=== PATIENT | female | born 1950 | race Caucasian/White ===

== ENCOUNTER 2017-05-19 11:35 | Emergency (ER) | payer OTHER ==
[2017-05-19 12:03] VITALS: BP 133/95; PULSE 96; TEMP 99.4; BMI 24.7
--- NOTE | 2017-05-19 12:28 | PDOC ---
History of Present Illness - General Chief Complaint: Pain Stated Complaint: CHRONIC ABDOMINAL PAIN Time Seen by Provider: 05/19/17 11:52 History Source: Patient (Patient walked in along with her boyfriend complaing of abdominal recurent pain in around the navel. Her PMD sent her to a racing board marker for a periumbilical exema. Had an upper GI endoscopy wich clarified the questionable stomach mass as food in te stomach. Patient reportedely had periodic Chief Nursing Officer and Mamograms check ups as well PCP routine visits ) Exam Limitations: No Limitations - History of Present Illness Timing/Duration: unsure, changing over time, intermittent Severity: mild Modifying Factors: worse with: cold therapy, eating, immobilization, medication , movement, rest, other Associated Symptoms: reports: denies symptoms Past History - Travel Traveled outside of the country in the last 30 days: No Close contact w/someone who was outside of country & ill: No - Past Medical History Allergies/Adverse Reactions: Allergies Allergy/AdvReac Type Severity Reaction Status Date / Time iodine Allergy Verified 05/19/17 11:37 lactase [From Dairy Aid] Allergy Verified 05/19/17 11:38 shellfish derived Allergy Verified 05/19/17 11:38 doxycycline AdvReac Verified 05/19/17 11:38 Home Medications: Ambulatory Orders Alprazolam [Xanax] 1 mg PO QID 03/18/15 Gabapentin 300 mg PO DAILY 03/18/15 Lisinopril 5 mg PO DAILY 03/18/15 Theophylline Anhydrous [Theophylline] 100 mg PO BID 03/18/15 Tramadol HCl 100 mg PO BID 03/18/15 Oxycodone HCl/Acetaminophen [Percocet 5/325 -] 1 tab PO Q6H PRN #8 tablet Albuterol Sulfate [Proair Respiclick] 90 mcg IH BID 05/19/17 Montelukast Na [Singulair -] 10 mg PO HS 05/19/17 Tramadol HCl [Tramadol HCl ER] 100 mg PO BID 05/19/17 COPD: Yes HTN: Yes Hypercholesterolemia: Yes Psychiatric Problems: Yes (BIPOLAR) Thyroid Disease: Yes - Suicide/Smoking/Psychosocial Hx Smoking Status: Yes Smoking History: Former smoker Have you smoked in the past 12 months: No Number of Cigarettes Smoked Daily: 0 If you are a former smoker, when did you quit?: 9 YEARS AGO Information on smoking cessation initiated: No Hx Alcohol Use: No Drug/Substance Use Hx: No Substance Use Type: None Hx Substance Use Treatment: No Review of Systems - Review of Systems Able to Perform ROS?: Yes Is the patient limited [place] proficient: Yes Constitutional: No: Symptoms Reported, See HPI, Chills, Diaphoresis, Fever, Loss of Appetite, Malaise, Night Sweats, Weakness, Weight Stable, Unintentional Wgt. Loss, Unexplained wgt Loss, Other *Physical Exam - Vital Signs Last Vital Signs Temp Pulse Resp BP Pulse Ox 99.4 F 96 H 20 133/95 96 05/19/17 11:36 05/19/17 11:36 05/19/17 11:36 05/19/17 11:36 05/19/17 11:36 - Physical Exam General Appearance: Yes: Nourished, Appropriately Dressed, Mild Distress HEENT: positive: ERLINDA Neck: positive: Supple Respiratory/Chest: positive: Lungs Clear, Normal Breath Sounds Cardiovascular: positive: Regular Rate, Diastolic Murmur Lymphatic: negative: Adenopathy Musculoskeletal: positive: Normal Inspection Extremity: positive: Normal Capillary Refill Integumentary: positive: Normal Color Neurologic: positive: osteopathic physician II-XII NML intact, Fully Oriented, Alert, Normal Mood/ Affect ED Treatment Course - LABORATORY CBC & Chemistry Diagram: 05/19/17 12:30 05/19/17 12:30 Medical Decision Making - Medical Decision Making CT abdomen and pelvis, no acute changes when compared with previous test done here. The US revealed a pelvic mass like near ovary which in my opinion needs futyher evaluation through her Chief Nursing Officer MD as advised 05/19/17 15:53 *DC/Admit/Observation/Transfer Diagnosis at time of Disposition: Pelvic pain, Abdominal pain - Discharge Dispostion Disposition: HOME Condition at time of disposition: Stable Admit: No - Referrals Referrals: Eboni Alicea MD [Staff Physician] - - Patient Instructions Printed Discharge Instructions: DI for Pelvic Pain Additional Instructions: Follow up with your Chief Nursing Officer MD and your PMD - Post Discharge Activity
[2017-05-19 12:37] LABS: PH,URINE 5.5 (4.5-8); URINE APPEARANCE Clear; URINE BILIRUBIN Negative (NEGATIVE); URINE GLUCOSE (UA) Negative (NEGATIVE); URINE KETONE Negative (NEGATIVE); URINE LEUK ESTERASE Negative (NEGATIVE); URINE NITRITE Negative (NEGATIVE); URINE PROTEIN Negative (NEGATIVE); URINE UROBILINOGEN 0.2 (0.2-1.0)
[2017-05-19 12:38] LABS: BASOPHIL 1.8 % (0-2.0); EOSINOPHIL 3.6 % (0-4.5); MCH 29.6 pg (25.7-33.7); MCHC 34.1 g/dl (32.0-36.0); MEAN PLT VOLUME 8.3 fl (7.5-11.1); NEUTROPHILS 70.5 % (42.8-82.8); PLATELET COUNT 371 K/MM3 (134-434); RDW 12.8 % (11.6-15.6); WHITE BLOOD COUNT 7.2 K/mm3 (4.0-10.8)
[2017-05-19 12:44] LABS: URINE BLOOD Trace-intact (NEGATIVE); URINE COLOR YELLOW
[2017-05-19 12:49] LABS: ALBUMIN 4.1 g/dl (3.5-5.0); ALK PHOS 49 U/L (32-92); ANION GAP 6 (8-16); BILIRUBIN,TOTAL 0.5 mg/dl (0.2-1.0); CALCIUM 9.4 mg/dl (8.4-10.2); CO2 28 mmol/L (22-28); GLUCOSE,RANDOM 83 mg/dl (74-106); SGOT/AST 21 U/L (10-42); SGPT/ALT 17 U/L (10-40)
[2017-05-19 19:03] LABS: URINE WBC 0-1 (0-5)
[2017-05-19 19:04] LABS: URINE BACTERIA FEW /hpf (NEGATIVE)
== END 2017-05-19 14:42 | disposition home or self-care (01) ==
LOC: FER 11:35
DX: R10.33 Periumbilical pain (principal); R10.2 Pelvic and perineal pain; J44.9 Chronic obstructive pulmonary disease, unspecified; I10 Essential (primary) hypertension; F31.9 Bipolar disorder, unspecified; Z87.891 Personal history of nicotine dependence; E07.9 Disorder of thyroid, unspecified
CPT/HCPCS: 36415; 74176-TC; 76830-TC; 76856-TC; 80053; 81003; 81015; 83690; 85025; 99283-25

== ENCOUNTER 2017-12-27 08:49 | Emergency (ER) | payer OTHER ==
[2017-12-27 09:04] VITALS: BP 117/71; PULSE 92; TEMP 98.2; BMI 23.8
--- NOTE | 2017-12-27 09:07 | PDOC ---
History of Present Illness - General Chief Complaint: Pain Stated Complaint: LEFT LEG APIN Time Seen by Provider: 12/27/17 08:51 History Source: Patient Exam Limitations: No Limitations - History of Present Illness Initial Comments: 12/27/17 09:02 67 y/o female with chronic back and leg pain presents to ER with increase left leg pain. No fever or chills. No fall, trauma or weakness. Pain is better this morning but worse last night. No incontinence or recent long trip. No swelling, but had vein stripping back in August. Takes her usual pain medications. Concerned about a blood clot. Denies SOB, chest pain, N/V/d/C. Timing/Duration: 24 hours Severity: moderate Associated Symptoms: denies: chest pain, cough, shortness of breath Past History - Past Medical History Allergies/Adverse Reactions: Allergies Allergy/AdvReac Type Severity Reaction Status Date / Time iodine Allergy Verified 12/27/17 08:57 lactase [From Dairy Aid] Allergy Verified 12/27/17 08:57 shellfish derived Allergy Verified 12/27/17 08:57 doxycycline AdvReac Verified 12/27/17 08:57 Home Medications: Ambulatory Orders Alprazolam [Xanax] 1 mg PO QID 03/18/15 Gabapentin 300 mg PO DAILY 03/18/15 Lisinopril 5 mg PO DAILY 03/18/15 Theophylline Anhydrous [Theophylline] 100 mg PO BID 03/18/15 Oxycodone HCl/Acetaminophen [Percocet 5/325 -] 1 tab PO Q6H PRN #8 tablet Albuterol Sulfate [Proair Respiclick] 90 mcg IH BID 05/19/17 Montelukast Na [Singulair -] 10 mg PO HS 05/19/17 Tramadol HCl [Tramadol HCl ER] 100 mg PO BID 05/19/17 COPD: Yes HTN: Yes Hypercholesterolemia: Yes Psychiatric Problems: Yes (BIPOLAR) Thyroid Disease: Yes - Suicide/Smoking/Psychosocial Hx Smoking Status: Yes Smoking History: Former smoker Have you smoked in the past 12 months: No Number of Cigarettes Smoked Daily: 0 If you are a former smoker, when did you quit?: 9 YEARS AGO Hx Alcohol Use: No Drug/Substance Use Hx: No Substance Use Type: None Hx Substance Use Treatment: No Review of Systems - Review of Systems Able to Perform ROS?: Yes Is the patient limited [place] proficient: No Constitutional: No: Chills, Fever, Night Sweats Respiratory: No: Cough, Shortness of Breath Cardiac (ROS): No: Chest Pain, Edema : No: Dysuria Musculoskeletal: No: Gout, Joint Pain, Muscle Weakness Integumentary: No: Bruising, Dryness, Erythema Neurological: No: Numbness, Paresthesia All Other Systems: Reviewed and Negative *Physical Exam - Physical Exam General Appearance: Yes: Nourished, Appropriately Dressed. No: Apparent Distress HEENT: positive: EOMI, ERLINDA, Normal ENT Inspection, Normal Voice, Pharynx Normal Neck: positive: Trachea midline, Normal Thyroid, Supple. negative: Tender, Rigid Respiratory/Chest: positive: Lungs Clear, Normal Breath Sounds. negative: Chest Tender Cardiovascular: positive: Regular Rhythm, Regular Rate, S1, S2. negative: Edema , JVD, Murmur Vascular Pulses: Femoral (R): 4+, Femoral (L): 4+, Carotid (R): 4+, Carotid (L) : 4+, Dorsalis-Pedis (R): 4+, Doralis-Pedis (L): 4+ Gastrointestinal/Abdominal: positive: Normal Bowel Sounds, Flat, Soft. negative : Tender, Organomegaly, Pulsatile Mass Lymphatic: negative: Adenopathy, Tenderness, Other Musculoskeletal: positive: Normal Inspection. negative: CVA Tenderness, Decreased Range of Motion, Muscle Spasm (no tenderness to back, full ROM, no spinous process tenderness noted), Vertebral Tenderness Extremity: positive: Normal Capillary Refill, Normal Inspection, Normal Range of Motion, Tender (tender to left calf noted), Calf Tenderness (left calf tenderness, no swelling or varicose veins noted, pulses 2+/4 b/l in LE. no focal deficits noted, no erythema or ecchymosis noted, right calf with no tenderness noted). negative: Coldness, Delayed Capillary Refill, Pedal Edema, Swelling, Erythema Integumentary: positive: Normal Color, Dry, Warm. negative: Erythema, Rash, Swelling, Ecchymosis Neurologic: positive: principal embedded software engineer II-XII NML intact, Fully Oriented, Alert, Normal Mood/ Affect, Normal Response, Motor Strength 5/5 (strength 5+/5 b/l in UE and LE, no focal deficits noted) ED Treatment Course - ADDITIONAL ORDERS Additional order review: 12/27/17 09:07 Pt with hx of varicosities, calf pain, will obtain US left leg to r/o DVT. Pt is in agreement with plan. 12/27/17 10:26 US left leg: No DVT Will discharge home, may be neuropathic pain Recommend increasing Gabepentin Followup with PMD If worsen return to ER Pt is in agreement with plan - RADIOLOGY Radiology Studies Ordered: Category Date Time Status DUPLEX VASCUL US-1 LEG [US] Stat Ultrasound 12/27/17 09:01 Ordered *DC/Admit/Observation/Transfer Diagnosis at time of Disposition: Neuropathy Leg pain Qualifiers: Laterality: left Qualified Code(s): M79.605 - Pain in left leg - Discharge Dispostion Disposition: HOME Condition at time of disposition: Good Decision to Admit order: No - Referrals - Patient Instructions Printed Discharge Instructions: DI for Leg Pain, Peripheral Neuropathy Additional Instructions: Continue current pain medications Increase Gabapentin to 2x/day Follow up with PMD If worsen return to ER - Post Discharge Activity
== END 2017-12-27 10:32 | disposition home or self-care (01) ==
LOC: FER 08:49
DX: G62.9 Polyneuropathy, unspecified (principal); G89.29 Other chronic pain; I10 Essential (primary) hypertension; F31.9 Bipolar disorder, unspecified; E78.00 Pure hypercholesterolemia, unspecified; J44.9 Chronic obstructive pulmonary disease, unspecified; E07.9 Disorder of thyroid, unspecified; Z87.891 Personal history of nicotine dependence
CPT/HCPCS: 93971-TC; 99281-25

== ENCOUNTER 2018-03-06 10:02 | Emergency (ER) | payer OTHER ==
[2018-03-06 10:26] VITALS: BP 145/83; PULSE 87; TEMP 98.6; BMI 24.7
--- NOTE | 2018-03-06 10:27 | PDOC ---
Attending Attestation - Resident Resident Name: Juan Manuel Lo - ED Attending Attestation I have performed the following: I have examined & evaluated the patient, The case was reviewed & discussed with the resident, I agree w/resident's findings & plan, Exceptions are as noted - HPI HPI: 03/06/18 10:41 67y F hx of copd, htn, hl, thyroid disease, chronic back pain, bipolar disease presents with complaint of r sided flank pain. The pain started after bending down to clean with her right arm, pain is 5/10, worse with bending/moving and is graham pin nature, radiates from the R flank from back to front. Pt not associated with food. ONly comes with movement and nevers gets it at rest. no assoiated fever/chills, diarrhea, hematuria,dysuria. Minimal relief with tramadol. Denies numnbess/tingling/weakness, urinary or bowel incontinence. - Physicial Exam PE: 03/06/18 11:57 GENERAL: The patient is awake, alert, and fully oriented, Nontoxic - in no acute distress. NECK: Normal range of motion, supple ABDOMEN: Soft, nontender, EXTREMITIES: Normal range of motion, no edema. No clubbing or cyanosis. No cords, erythema, or tenderness. BACK: No focal midline tenderness, mild paravertebral tenderness in lumbar spine , NEUROLOGICAL: No facial assymetry, Normal speech, strenth symmetric in upper., ower extremities SKIN: No rashes, Warm, Dry, normal turgor, - Medical Decision Making 03/06/18 11:59 suspect msucle spasms will treat with flexeril, nsads and pmd fu supportive care at home I discussed the physical exam findings, ancillary test results and final diagnoses with the patient. I answered all of the patient's questions. The patient was satisfied with the care received and felt comfortable with the discharge plan and treatment plan. The patient will call their primary care physician within 24 hours to arrange follow-up and will return to the Emergency Department with any new, persistent or worsening symptoms.
--- NOTE | 2018-03-06 11:00 | PDOC ---
History of Present Illness - General Chief Complaint: Pain Stated Complaint: RIGHT SIDED MUSCULAR PAIN Time Seen by Provider: 03/06/18 10:09 History Source: Patient Exam Limitations: No Limitations - History of Present Illness Initial Comments: 03/06/18 10:52 Ms. Pope is a 67 yo F with a hx of chronic back pain (on previous pain management course) COPD, HTN, bipolar disorder, and thyroid disease who presents to the ED with right sided flank pain. Onset was Thursday after washing her baseboards with her right hand and making a twisting motion upward in which she had onset of sharp pain that radiates from the posterior midaxillary line to the anterior midaxillary line. She states at rest its 5/10 dull pain but when she gets up or makes a twisting motion, the pain becomes sharp 10/10. She uses her home medications of tramadol and percocet which gave her marginal relief. Denies the following: fever, ataxia, recent visual changes , SOB, chest pain, abdominal pain, dysuria, incontinence, melena/hematochezia, loss of motor/sensation in LE, and leg pain and swelling. Pmhx: Refer to above Meds: pain management includes motrin, tramadol, percocet, and gabapentin Allergies: iodine, doxycycline Social: Denies smoking tobacco, consuming alcohol, and substance abuse. Past History - Past Medical History Allergies/Adverse Reactions: Allergies Allergy/AdvReac Type Severity Reaction Status Date / Time iodine Allergy Severe Difficulty Verified 03/06/18 10:04 Breathing shellfish derived Allergy Severe Difficulty Verified 03/06/18 10:04 Breathing lactase [From Dairy Aid] Allergy Intermediate Nausea Verified 03/06/18 10:05 doxycycline AdvReac Intermediate Verified 03/06/18 10:05 Home Medications: Ambulatory Orders Alprazolam [Xanax] 1 mg PO QID 03/18/15 Gabapentin 300 mg PO BID 03/18/15 Lisinopril 5 mg PO DAILY 03/18/15 Theophylline Anhydrous [Theophylline] 200 mg PO BID 03/18/15 Albuterol Sulfate [Proair Respiclick] 90 mcg IH BID 05/19/17 Montelukast Na [Singulair -] 10 mg PO HS 05/19/17 Tramadol HCl [Tramadol HCl ER] 100 mg PO BID 05/19/17 Oxycodone HCl/Acetaminophen [Percocet 5-325 mg Tablet] 1 tab PO Q6H #8 tablet MDD 4 01/07/18 Cyclobenzaprine HCl [Flexeril -] 10 mg PO TID #18 tablet 03/06/18 COPD: Yes HTN: Yes Hypercholesterolemia: Yes Psychiatric Problems: Yes (BIPOLAR) Thyroid Disease: Yes Other medical history: NEUROPATHY CHRONIC BACK PROBLEM - Suicide/Smoking/Psychosocial Hx Smoking Status: Yes Smoking History: Former smoker Have you smoked in the past 12 months: No Number of Cigarettes Smoked Daily: 0 If you are a former smoker, when did you quit?: 10 YEARS AGO Information on smoking cessation initiated: No Hx Alcohol Use: No Drug/Substance Use Hx: No Substance Use Type: None Hx Substance Use Treatment: No Review of Systems - Review of Systems Able to Perform ROS?: Yes Constitutional: No: Chills, Diaphoresis, Fever HEENTM: No: Eye Pain, Recent change in vision, Ear Pain, Nose Pain, Throat Pain , Mouth Pain Respiratory: No: Cough, Shortness of Breath Cardiac (ROS): No: Chest Pain, Lightheadedness, Palpitations ABD/GI: No: Constipated, Diarrhea, Nausea, Rectal Bleeding, Vomiting, Tarry Stools : Yes: Flank Pain (right). No: Burning, Dysuria, Hematuria Musculoskeletal: Yes: Back Pain. No: Joint Swelling, Muscle Weakness, Joint Stiffness Integumentary: No: Bruising, Pruritus, Rash Neurological: No: Headache, Numbness, Tremors, Weakness, Ataxia, Dizziness Psychiatric: No: Stressors Endocrine: No: Unexplained Weight Gain Hematologic/Lymphatic: No: Anemia *Physical Exam - Vital Signs Last Vital Signs Temp Pulse Resp BP Pulse Ox 98.6 F 87 16 145/83 95 03/06/18 10:03 03/06/18 10:03 03/06/18 10:03 03/06/18 10:03 03/06/18 10:03 - Physical Exam General Appearance: Yes: Nourished, Appropriately Dressed HEENT: positive: EOMI, ERLINDA, Normal ENT Inspection Neck: positive: Trachea midline. negative: Lymphadenopathy (R), Lymphadenopathy (L) Respiratory/Chest: positive: Lungs Clear, Normal Breath Sounds Cardiovascular: positive: Regular Rhythm, Regular Rate, S1, S2. negative: Systolic Murmur Vascular Pulses: Dorsalis-Pedis (R): 3+, Doralis-Pedis (L): 3+ Gastrointestinal/Abdominal: positive: Normal Bowel Sounds. negative: Tender Musculoskeletal: positive: Normal Inspection, Other (tenderness in the right flank area with pushing and pulling with the right arm. ). negative: CVA Tenderness Extremity: positive: Normal Capillary Refill, Normal Inspection, Normal Range of Motion. negative: Pedal Edema, Swelling, Calf Tenderness, Erythema Integumentary: positive: Normal Color, Dry, Warm. negative: Hives, Rash Neurologic: positive: applications engineer manufacturing II-XII NML intact, Fully Oriented, Alert, Normal Mood/ Affect, Normal Response, Motor Strength 5/5. negative: EOM Palsy, Facial Droop , Numbness, Sensory Deficit, Disoriented Medical Decision Making - Medical Decision Making 03/06/18 18:17 Ms. Pope is a 67 yo F with significant past medical hx presenting with right sided pain likely muscular vs renal vs gallbladder vs GI initial vitals: Initial Vital Signs Temp Pulse Resp BP Pulse Ox 98.6 F 87 16 145/83 95 03/06/18 10:03 03/06/18 10:03 03/06/18 10:03 03/06/18 10:03 03/06/18 10:03 Work up: Laboratory Tests 03/06/18 10:53 Urine Color Yellow Urine Appearance Clear Urine pH 5.0 Ur Specific [place] 1.015 Urine Protein Negative Urine Glucose (UA) Negative Urine Ketones Negative Urine Blood Trace-intact H Urine Nitrite Negative Urine Bilirubin Negative Urine Urobilinogen 0.2 Ur Leukocyte Esterase Negative Urine RBC 0-3 Urine WBC 0-3 Ur Epithelial Cells 1+ Urine Crystals Many Calcium Oxalate Crystal Many Urine Bacteria 1 Discharged home with flexiril. Told to follow up with primary card doctor on Thursday for follow up care and management. pain subsided with flexiril. Dispo: DC to home *DC/Admit/Observation/Transfer Diagnosis at time of Disposition: Musculoskeletal pain - Discharge Dispostion Disposition: HOME Condition at time of disposition: Stable Decision to Admit order: No - Prescriptions Prescriptions: Cyclobenzaprine HCl [Flexeril -] 10 mg PO TID #18 tablet - Referrals Referrals: Eboni Alicea MD [Staff Physician] - - Patient Instructions Printed Discharge Instructions: DI for Low Back Pain Additional Instructions: You have been seen in the emergency department and diagnosed with musculoskeletal pain on the right side. Please follow up with your primary medical doctor within 24-48 hours for further care and management. Please take the medication as prescribed. Do not consume alcohol or operate machinery including a motor vehicle while taking the medication. If your symptoms worsen, persist, or new concerning symptoms develop, please return to the emergency department. - Post Discharge Activity
[2018-03-06] MEDS ORDERED: CYCLOBENZAPRINE HCL 10 MG TABLET (FP) PO ONE (11:01)
[2018-03-06] MEDS ORDERED: KETOROLAC TROMETHAMINE 30 MG/1 ML VIAL IM ONE (11:01)
[2018-03-06] MEDS ORDERED: KETOROLAC TROMETHAMINE 30 MG/1 ML VIAL ONE (11:11)
[2018-03-06] MEDS ORDERED: CYCLOBENZAPRINE HCL 10 MG TABLET (FP) ONE (11:12)
[2018-03-06 11:22] LABS: URINE APPEARANCE Clear; URINE BILIRUBIN Negative (NEGATIVE); URINE COLOR Yellow; URINE GLUCOSE (UA) Negative (NEGATIVE); URINE KETONE Negative (NEGATIVE); URINE LEUK ESTERASE Negative (NEGATIVE); URINE NITRITE Negative (NEGATIVE); URINE PROTEIN Negative (NEGATIVE); URINE UROBILINOGEN 0.2 (0.2-1.0)
[2018-03-06 12:53] LABS: URINE RBC 0-3 /hpf (0-3)
[2018-03-06 12:54] LABS: CALCIUM OXALATE CRYSTALS MANY /hpf (NONE SEEN); EPI CELLS 1+ /HPF; URINE BACTERIA 1 /hpf (NEGATIVE); URINE CRYSTALS MANY /hpf (NONE SEEN); URINE WBC 0-3 (0-5)
== END 2018-03-06 12:17 | disposition home or self-care (01) ==
LOC: FER 10:02
PROC: 3E0233Z Introduction of Anti-inflammatory into Muscle, Percutaneous Approach (ICD-10-PCS; principal; 2018-03-06)
DX: M79.1 Myalgia (principal); J44.9 Chronic obstructive pulmonary disease, unspecified; I10 Essential (primary) hypertension; E78.00 Pure hypercholesterolemia, unspecified; F31.9 Bipolar disorder, unspecified; E07.9 Disorder of thyroid, unspecified; Z87.891 Personal history of nicotine dependence
CPT/HCPCS: 81003; 81015; 99282-25

== ENCOUNTER 2018-07-13 10:26 | Emergency (ER) | payer OTHER ==
[2018-07-13 10:36] VITALS: BMI 25.0
[2018-07-13] MEDS ORDERED: FAMOTIDINE 20 MG/50 ML IVPB 20 MG/50 ML MG IVPB ONE ×2 (11:41→11:45)
[2018-07-13 12:06] LABS: BASO % 0.9 % (0-2.0); EOS % 1.6 % (0-4.5); HEMATOCRIT 43.8 % (32.4-45.2); HEMOGLOBIN 15.4 GM/dL (10.7-15.3); LYMPH % 16.8 % (8-40); MCH 30.8 pg (25.7-33.7); MCHC 35.1 g/dl (32.0-36.0); MEAN CELL VOLUME 87.6 fl (80-96); MONO % 8.1 % (3.8-10.2); NEUT % 72.6 % (42.8-82.8); PLATELET COUNT 320 K/MM3 (134-434); RBC 4.99 M/mm3 (3.60-5.2); RDW 14.6 % (11.6-15.6); WHITE BLOOD COUNT 7.5 K/mm3 (4.0-10.0)
--- NOTE | 2018-07-13 12:06 | PDOC ---
History of Present Illness <Shonna Graham - Last Filed: 07/13/18 12:10> - General History Source: Patient - History of Present Illness Presenting Symptoms: Nausea, Vomiting Timing/Duration: reports: intermittent <Boom Colmenares - Last Filed: 07/13/18 15:22> - General Chief Complaint: Vomiting/Diarrhea Stated Complaint: SOB Time Seen by Provider: 07/13/18 11:28 Past History <Shonna Graham - Last Filed: 07/13/18 12:10> - Past Medical History COPD: Yes HTN: Yes Hypercholesterolemia: Yes Psychiatric Problems: Yes (BIPOLAR) Thyroid Disease: Yes - Immunization History Immunization Up to Date: No - Suicide/Smoking/Psychosocial Hx Smoking Status: Yes Smoking History: Former smoker Have you smoked in the past 12 months: No Number of Cigarettes Smoked Daily: 0 If you are a former smoker, when did you quit?: 10 YEARS AGO Information on smoking cessation initiated: No Hx Alcohol Use: No Drug/Substance Use Hx: No Substance Use Type: None Hx Substance Use Treatment: No <Boom Colmenares - Last Filed: 07/13/18 15:22> - Past Medical History Allergies/Adverse Reactions: Allergies Allergy/AdvReac Type Severity Reaction Status Date / Time iodine Allergy Severe Difficulty Verified 07/01/18 09:07 Breathing shellfish derived Allergy Severe Difficulty Verified 07/01/18 09:07 Breathing lactase [From Dairy Aid] Allergy Intermediate Nausea Verified 07/01/18 09:07 doxycycline AdvReac Intermediate Verified 07/01/18 09:07 Home Medications: Ambulatory Orders Alprazolam [Xanax] 1 mg PO QID 03/18/15 Gabapentin 300 mg PO BID 03/18/15 Lisinopril 5 mg PO DAILY 03/18/15 Theophylline Anhydrous [Theophylline] 100 mg PO BID 03/18/15 Albuterol Sulfate [Proair Respiclick] 90 mcg IH BID 05/19/17 Tramadol HCl [Tramadol HCl ER] 200 mg PO BID 05/19/17 Oxycodone HCl/Acetaminophen [Percocet 5-325 mg Tablet] 1 tab PO Q6H #8 tablet MDD 4 01/07/18 Review of Systems - Review of Systems Constitutional: No: Chills, Fever Respiratory: Yes: Cough. No: Shortness of Breath Cardiac (ROS): Yes: Chest Pain. No: Lightheadedness, Palpitations, Syncope ABD/GI: Yes: Nausea, Vomiting. No: Blood Streaked Bowels, Constipated, Diarrhea , Rectal Bleeding <Boom Colmenares - Last Filed: 07/13/18 15:22> *Physical Exam - Physical Exam General Appearance: Yes: Appropriately Dressed. No: Apparent Distress HEENT: positive: Normal Voice Neck: positive: Supple Respiratory/Chest: positive: Lungs Clear, Normal Breath Sounds. negative: Respiratory Distress Cardiovascular: positive: Regular Rate, S1, S2 Gastrointestinal/Abdominal: positive: Normal Bowel Sounds, Soft. negative: Tender, Distended, Guarding, Rebound Musculoskeletal: negative: CVA Tenderness Extremity: negative: Swelling Integumentary: positive: Dry, Warm Neurologic: positive: Fully Oriented, Alert, Normal Mood/Affect <Boom Colmenares - Last Filed: 07/13/18 15:22> - Vital Signs Last Vital Signs Temp Pulse Resp BP Pulse Ox 98.6 F 92 H 16 111/75 97 07/13/18 10:34 07/13/18 10:34 07/13/18 10:34 07/13/18 10:34 07/13/18 10:34 Heart Score/ECG Review <Shonna Graham - Last Filed: 07/13/18 12:10> <DarrianArielleRyan - Last Filed: 07/13/18 15:22> - ECG Intrepretation Comment:: 07/13/18 12:30 Twelve-lead EKG was performed and reviewed by me. There is normal sinus rhythm with a normal rate. The axis is normal. The intervals are normal. There are no ST or T wave abnormalities. Impression: Normal twelve-lead EKG (DarrianBoom) - Procedure Monitoring Vital Signs: Procedure Monitoring Vital Signs Temperature 98.6 F 07/13/18 10:34 Pulse Rate 92 H 07/13/18 10:34 Respiratory Rate 16 07/13/18 10:34 Blood Pressure 111/75 07/13/18 10:34 O2 Sat by Pulse Oximetry (%) 97 07/13/18 10:34 ED Treatment Course - LABORATORY CBC & Chemistry Diagram: 07/13/18 11:55 07/13/18 11:55 <Shonna Graham - Last Filed: 07/13/18 12:10> - LABORATORY CBC & Chemistry Diagram: 07/13/18 11:55 07/13/18 11:55 <Boom Colmenares - Last Filed: 07/13/18 15:22> - ADDITIONAL ORDERS Additional order review: Laboratory Results 07/13/18 11:55 Sodium 140 Potassium 3.9 Chloride 107 Carbon Dioxide 28 Anion Gap 5 L BUN 15 Creatinine 1.0 Creat Clearance w eGFR 55.30 Random Glucose 93 Calcium 8.5 Total Bilirubin 0.2 AST 14 L ALT 25 Alkaline Phosphatase 64 Creatine Kinase 47 Troponin I < 0.02 Total Protein 6.4 Albumin 3.6 07/13/18 11:55 RBC 4.99 MCV 87.6 MCHC 35.1 RDW 14.6 MPV 8.0 Neutrophils % 72.6 Lymphocytes % 16.8 Monocytes % 8.1 Eosinophils % 1.6 Basophils % 0.9 - RADIOLOGY Radiology Studies Ordered: Category Date Time Status CHEST PA & LAT [RAD] Stat Radiology 07/13/18 11:40 Completed - Medications Given in the ED: ED Medications Discontinued Medications Generic Name Dose Route Start Last Admin Trade Name Freq PRN Reason Stop Dose Admin Famotidine/Sodium Chloride 20 mg in 50 mls @ 100 mls/hr 07/13/18 11:41 11:51 Pepcid 20 Mg Premixed Ivpb - IVPB 07/13/18 12:10 100 mls/hr ONCE ONE Administration Medical Decision Making <GrahamShonna Negro - Last Filed: 07/13/18 12:10> <Boom Colmenares - Last Filed: 07/13/18 15:22> - Medical Decision Making The patient was seen and evaluated in conjunction with midlevel provider under my direct supervision, ancillary studies were reviewed. I agree with the plan as outlined by CIELO Colmenares. HPI as outlined. 07/13/18 12:10 (Shonna Graham) 07/13/18 12:02 67-year-old female, history of HLD, HTN, COPD, not on oxygen, gastritis/GERD, currently on augmentin for cough per pt, bipolar disorder, here with chest pain. Patient states for the past week has had substernal discomfort which she describes as "indigestion" worse in the a.m. Also w/ n/v. States pain worsened yesterday after eating. Not worse w/ exertion. Denies hematemesis, melena, BRBPR, shortness of breath, diaphoresis, nausea, vomiting, fever or chills. States this feels more like her gastritis/GERD. Taking omeprazole with no relief (only take meds when she needs it). Of note, patient had recent stress test showing mild inferior ischemia and was told to start taking her aspirin daily. States she is supposed to have a cath in the near future. Took her asa this am See exam CP R/o ACS vs gastritis/GERD -EKG -CXR -labs -GI cocktail/reassess -cards (Kriss) c/s to d/c dispo 07/13/18 13:02 EKG/CXR and labs unremarkable. Patient does report improvement with meds. Able to tolerate po. Will contact Dr Monterroso to discuss dispo 07/13/18 15:17 After several hours of paging cardiology, Dr Coe, finally called back and after discussing case, states patient can be discharged to follow up with Dr. Felipe in the a.m. Patient remained stable and has been asx since receiving pepcid. Feels safe being discharged to continue all her home meds and f/u with cards 07/13/18 15:21 (Boom Colmenares) *DC/Admit/Observation/Transfer <Shonna Graham - Last Filed: 07/13/18 12:10> <Boom Colmenares - Last Filed: 07/13/18 15:22> Diagnosis at time of Disposition: Chest discomfort - Discharge Dispostion Disposition: HOME Condition at time of disposition: Improved - Referrals Referrals: Eboni Alicea MD [Primary Care Provider] - - Patient Instructions Printed Discharge Instructions: DI for Atypical Chest Pain Additional Instructions: Please follow-up with Dr. Felipe tomorrow. If symptoms worsen prior to then, please return to ER immediately Take your omeprazole daily Resume all home meds
[2018-07-13 12:35] LABS: ALBUMIN 3.6 g/dl (3.4-5.0); ALK PHOS 64 U/L (45-117); ANION GAP 5 MMOL/L (8-16); BILIRUBIN,TOTAL 0.2 mg/dL (0.2-1); BLOOD UREA NITROGEN 15 mg/dL (7-18); CALCIUM 8.5 mg/dL (8.5-10.1); CHLORIDE 107 mmol/L (98-107); CO2 28 mmol/L (21-32); GLUCOSE,RANDOM 93 mg/dL (74-106); POTASSIUM 3.9 mmol/L (3.5-5.1); SGOT/AST 14 U/L (15-37); SGPT/ALT 25 U/L (13-61); SODIUM 140 mmol/L (136-145); TOT PROT 6.4 g/dl (6.4-8.2)
--- NOTE | 2018-07-13 14:31 | EKG ---
Test Reason : Blood Pressure : / mmHG Vent. Rate : 089 BPM Atrial Rate : 089 BPM P-R Int : 142 ms QRS Dur : 082 ms QT Int : 370 ms P-R-T Axes : 057 028 049 degrees QTc Int : 450 ms NORMAL SINUS RHYTHM NORMAL ECG WHEN COMPARED WITH ECG OF 21-SEP-2014 09:11, NO SIGNIFICANT CHANGE WAS FOUND Confirmed by Teja Richard MD ([id number]) on 07/13/2018 2:31:06 PM Referred By: Confirmed By:Teja Richard MD
[2018-07-13 15:44] VITALS: BP 110/59; PULSE 94; TEMP 98
== END 2018-07-13 15:45 | disposition home or self-care (01) ==
LOC: JER 10:26
PROC: 3E033GC Introduction of Other Therapeutic Substance into Peripheral Vein, Percutaneous Approach (ICD-10-PCS; principal; 2018-07-13)
DX: R07.9 Chest pain, unspecified (principal); I10 Essential (primary) hypertension; E78.5 Hyperlipidemia, unspecified; K21.9 Gastro-esophageal reflux disease without esophagitis; J44.9 Chronic obstructive pulmonary disease, unspecified; Z87.891 Personal history of nicotine dependence
CPT/HCPCS: 36415; 71046-TC-FY; 80053; 82550; 84484; 85025; 93005; 93010; 99282-25

== ENCOUNTER 2018-08-16 13:43 | Emergency (ER) | payer OTHER ==
[2018-08-16] MEDS ORDERED: ALBUTEROL SO4 0.083% IH SOL 2.5 MG/3 ML VIAL.NEB. NEB ONE ×2 (14:10→14:11)
[2018-08-16] MEDS ORDERED: ONDANSETRON 4 MG/2 ML VIAL IVPUSH ONE (14:10)
[2018-08-16 14:12] VITALS: BMI 24.7
[2018-08-16] MEDS ORDERED: ONDANSETRON 4 MG/2 ML VIAL ONE (14:12)
--- NOTE | 2018-08-16 14:25 | PDOC ---
Attending Attestation - Resident Resident Name: Jose ACarlos - ED Attending Attestation I have performed the following: I have examined & evaluated the patient, The case was reviewed & discussed with the resident, I agree w/resident's findings & plan, Exceptions are as noted - HPI HPI: 08/16/18 14:23 68yo F hx HTN, HL, bipolar d/o, thyroid disease, COPD presents to the ED with N/ V/D and fever to 101 since last night. Pt reports symptoms began at 4:30AM. She reports 12 episodes of NBNB emesis and innumerable episodes of diarrhea, non bloody. Denies associated abd pain. States no one ate the same meal as her yesterday and wonders if she has food poisoning. Pt reports she feels chronically SOB but the SOB felt worse while vomiting prompting her to take 2 albuterol puffs and prednisone which helped. Denies current CP or SOB. Pt denies dizziness, weakness, numbness, LE pain or swelling, dysuria, hematuria, frequency. - Physicial Exam PE: 08/16/18 16:53 GENERAL: Awake, alert, and fully oriented, in no acute distress HEAD: No signs of trauma EYES: PERRLA, EOMI, sclera anicteric, conjunctiva clear ENT: Nares patent, oropharynx clear without exudates. Moist mucosa LUNGS: Breath sounds equal, clear to auscultation bilaterally. No wheezes, and no crackles HEART: Regular rate and rhythm, normal S1 and S2, no murmurs, rubs or gallops ABDOMEN: Soft, nontender, normoactive bowel sounds. No guarding, no rebound. No masses EXTREMITIES: Normal range of motion, no edema. No cords, erythema, or tenderness NEUROLOGICAL: Normal speech, cranial nerves intact, equal strength and sensation, normal gait SKIN: Warm, Dry, normal turgor, no rashes or lesions noted. - Medical Decision Making 08/16/18 16:54 68yo F hx MMP including COPD presents to the ED with N/V and fever. Pt febrile and tachycardic on arrival to the ED. Exam benign with no abd ttp. Likely gastroenteritis. Labs wnl. Pt feeling much better with fluids and zofran. Pt was also given a duoneb due to report earlier of SOB that felt like her COPD. Lungs clear during entire ED stay with normal O2 sat. Pt tolerating PO and requesting DC home. Vitals recheck with defervescence and improved HR. BP 95/60 which pt states is around her baseline. Pt ambulating in ED with no dizziness, well appearing PO zofran sent to pharmacy in case of recurrent nausea Return precautions given, pt stable for DC home I discussed the physical exam findings, ancillary test results and final diagnoses with the patient. I answered all of the patient's questions. The patient was satisfied with the care received and felt comfortable with the discharge plan and treatment plan. The patient will call their primary care physician within 24 hours to arrange follow-up and will return to the Emergency Department with any new, persistent or worsening symptoms.
[2018-08-16 14:37] LABS: BASO % 1.3 % (0-2.0); HEMOGLOBIN 15.4 GM/dl (10.7-15.3); LYMPH % 2.9 % (8-40); MCH 29.5 pg (25.7-33.7); MCHC 32.8 g/dl (32.0-36.0); MEAN CELL VOLUME 89.8 fl (80-96); MEAN PLT VOLUME 8.3 fl (7.5-11.1); MONO % 5.4 % (3.8-10.2); NEUT % 89.4 % (42.8-82.8); PLATELET COUNT 419 K/MM3 (134-434); RBC 5.23 M/mm3 (3.60-5.2); WHITE BLOOD COUNT 13.1 K/mm3 (4.0-10.8)
--- NOTE | 2018-08-16 14:42 | PDOC ---
History of Present Illness - General Chief Complaint: Nausea/Vomiting Stated Complaint: NAUSEA & VOMITING Time Seen by Provider: 08/16/18 13:51 History Source: Patient Exam Limitations: No Limitations - History of Present Illness Initial Comments: 08/16/18 14:20 67 yo Female pmh of chronic back pain (on previous pain management course) COPD , HTN, bipolar disorder, thyroid disease and a known right sided kidney stone who presents to the ED with 1 day of fevers, NB/NB vomiting and lose stools for 1 day. Pt also admits to GERD (denies CP) that improved prior to evaluation and mild SOB today due to COPD requiring 2 albuterol treatments and 1 Prednisone treatment at home today with improvement. Pt states she went out to dinner last night, ate chicken and believes she may have food poisoning from it. Her grand daughter has similar symptoms but did not have the same meal last night. Denies recent illness or travel. Denies abdominal pain, back pain, CP, cough. Past History - Past Medical History Allergies/Adverse Reactions: Allergies Allergy/AdvReac Type Severity Reaction Status Date / Time iodine Allergy Severe Difficulty Verified 08/16/18 13:53 Breathing shellfish derived Allergy Severe Difficulty Verified 08/16/18 13:53 Breathing lactase [From Dairy Aid] Allergy Intermediate Nausea Verified 08/16/18 13:53 doxycycline AdvReac Intermediate Verified 08/16/18 13:53 Home Medications: Ambulatory Orders Alprazolam [Xanax] 1 mg PO QID 03/18/15 Gabapentin 300 mg PO BID 03/18/15 Lisinopril 5 mg PO DAILY 03/18/15 Albuterol Sulfate [Proair Respiclick] 90 mcg IH BID 05/19/17 Tramadol HCl [Tramadol HCl ER] 100 mg PO BID 05/19/17 Montelukast Sodium [Singulair] 10 mg PO DAILY 08/16/18 Ondansetron [Ondansetron Odt] 8 mg PO BID 4 Days #8 tab.rapdis 08/16/18 Oxycodone HCl/Acetaminophen [Oxycodone-Acetaminophen 10-325] 1 each PO QID PRN 08/16/18 Pravastatin Sodium 10 mg PO HS 08/16/18 Prednisone 10 mg PO DAILY PRN 08/16/18 Theophylline Anhydrous 150 mg PO BID 08/16/18 traZODone HCL [Trazodone HCl] 100 mg PO HS 08/16/18 COPD: Yes Disorders: Yes (BLADDER LIFT) HTN: Yes Hypercholesterolemia: Yes Kidney Stones: Yes Psychiatric Problems: Yes (BIPOLAR) Thyroid Disease: Yes Other medical history: CHRONIC BACK PAIN - Immunization History Immunization Up to Date: No - Suicide/Smoking/Psychosocial Hx Smoking Status: Yes Smoking History: Former smoker Have you smoked in the past 12 months: No Number of Cigarettes Smoked Daily: 0 If you are a former smoker, when did you quit?: 2007 Information on smoking cessation initiated: No Hx Alcohol Use: No Drug/Substance Use Hx: No Substance Use Type: None Hx Substance Use Treatment: No Review of Systems - Review of Systems Constitutional: Yes: Fever Respiratory: Yes: Shortness of Breath. No: Cough Cardiac (ROS): No: Chest Pain ABD/GI: Yes: Diarrhea, Nausea, Vomiting (12 episodes NB/NB), Other (denies abdominal pain). No: Constipated : Yes: Flank Pain (past hx known right kidney stone without recent change). No: Burning, Dysuria, Discharge, Frequency Musculoskeletal: No: Back Pain Integumentary: No: Rash Neurological: No: Headache, Numbness, Paresthesia *Physical Exam - Vital Signs Last Vital Signs Temp Pulse Resp BP Pulse Ox 100.3 F H 119 H 118/85 97 08/16/18 13:45 08/16/18 13:45 08/16/18 13:45 08/16/18 13:45 - Physical Exam General Appearance: Yes: Nourished, Appropriately Dressed. No: Apparent Distress HEENT: positive: EOMI Respiratory/Chest: positive: Lungs Clear, Normal Breath Sounds. negative: Respiratory Distress, Accessory Muscle Use, Crackles, Rhonchi, Stridor, Wheezing Cardiovascular: positive: Regular Rhythm, S1, S2, Tachycardia (resolved after treatment with tylenol). negative: Edema, JVD, Murmur Vascular Pulses: Dorsalis-Pedis (R): 3+, Doralis-Pedis (L): 3+ Gastrointestinal/Abdominal: positive: Normal Bowel Sounds, Flat, Soft. negative : Pulsatile Mass, Distended, Guarding, Rebound, Tenderness Musculoskeletal: negative: CVA Tenderness Neurologic: positive: Fully Oriented, Alert, Normal Mood/Affect, Normal Response Moderate Sedation - Procedure Monitoring Vital Signs: Procedure Monitoring Vital Signs Temperature 100.3 F H 02/11/19 13:45 Pulse Rate 119 H 08/16/18 13:45 Respiratory Rate Blood Pressure 118/85 08/16/18 13:45 O2 Sat by Pulse Oximetry (%) 97 08/16/18 13:45 ED Treatment Course - LABORATORY CBC & Chemistry Diagram: 08/16/18 14:13 08/16/18 14:13 Medical Decision Making - Medical Decision Making 08/16/18 16:56 68 yo female presents to the ED with 1 day of NB/NB vomiting 12 episodes and diarrhea with associated fevers. Vitals show elevated temp and tachycardia Treated with 4mg zofran, 1L NS and 650 mg tylenol with improvement of vitals CBC and CMP WNL. Pt upright in bed and feels much better, is not nauseated and able to eat and drink after PO challenge. Pt can be safely DC home with PCP follow up at this time. Zofran sent to pts pharmacy Pt understands plan and given strict return precautions *DC/Admit/Observation/Transfer Diagnosis at time of Disposition: Vomiting Qualifiers: Vomiting type: unspecified Vomiting Intractability: non-intractable Nausea presence: with nausea Qualified Code(s): R11.2 - Nausea with vomiting, unspecified - Discharge Dispostion Disposition: HOME Condition at time of disposition: Good Decision to Admit order: No - Prescriptions Prescriptions: Ondansetron [Ondansetron Odt] 8 mg PO BID 4 Days #8 tab.rapdis - Referrals Referrals: Eboni Alicea MD [Primary Care Provider] - - Patient Instructions Printed Discharge Instructions: DI for Vomiting -- Adult Additional Instructions: Please make an appointment with your Primary Doctor within the next 48 hours. Return to the Emergency Room for new or concerning symptoms including but not limited to: high fevers not responding to over the counter Tylenol or Motrin, severe abdominal pain, difficulty on urination, inability to eat or drink. Make it to your appointment with your kidney specialist in 2 days. Thank you - Post Discharge Activity
[2018-08-16] MEDS ORDERED: SODIUM CHLORIDE 0.9% 1000 ML INFUS.BAG IV ONE (14:51)
[2018-08-16] MEDS ORDERED: ACETAMINOPHEN 325 MG TABLET (FP) PO ONE (14:55)
[2018-08-16] MEDS ORDERED: ACETAMINOPHEN 325 MG TABLET (FP) ONE (14:57)
[2018-08-16 15:05] LABS: ALBUMIN 3.2 g/dl (3.4-5.0); ALK PHOS 43 U/L (45-117); ANION GAP 7 MMOL/L (8-16); BILIRUBIN,TOTAL 0.5 mg/dl (0.2-1); BLOOD UREA NITROGEN 22 mg/dl (7-18); CALCIUM 7.7 mg/dl (8.5-10); CHLORIDE 106 mmol/L (98-107); CO2 26 mmol/L (21-32); CREATININE 0.9 mg/dl (0.55-1.3); GLUCOSE,RANDOM 104 mg/dl (74-106); POTASSIUM 3.3 mmol/L (3.5-5.1); SGOT/AST 16 U/L (15-37); SGPT/ALT 13 U/L (13-61); SODIUM 139 mmol/L (136-145)
[2018-08-16 16:16] VITALS: BP 95/60; PULSE 98; TEMP 99.4
== END 2018-08-16 16:50 | disposition home or self-care (01) ==
LOC: FER 13:43
PROC: 3E0337Z Introduction of Electrolytic and Water Balance Substance into Peripheral Vein, Percutaneous Approach (ICD-10-PCS; principal; 2018-08-16)
PROC: 3E033GC Introduction of Other Therapeutic Substance into Peripheral Vein, Percutaneous Approach (ICD-10-PCS; 2018-08-16)
PROC: 3E0337Z Introduction of Electrolytic and Water Balance Substance into Peripheral Vein, Percutaneous Approach (ICD-10-PCS; 2018-08-16)
DX: R11.2 Nausea with vomiting, unspecified (principal); Z87.891 Personal history of nicotine dependence; F31.9 Bipolar disorder, unspecified; E78.00 Pure hypercholesterolemia, unspecified; G89.29 Other chronic pain
CPT/HCPCS: 36415; 80053; 85025; 94640; 96361; 96374; 99283-25; J7030

== ENCOUNTER 2019-02-17 10:43 | Emergency (ER) | payer OTHER | END 2019-02-17 12:35 | disposition home or self-care (01) | LOC: FER 10:43 ==

== ENCOUNTER 2019-07-17 10:19 | Emergency (ER) | payer OTHER ==
[2019-07-17 10:35] VITALS: TEMP 99.3; BMI 24.3
--- NOTE | 2019-07-17 10:38 | PDOC ---
History of Present Illness - General Chief Complaint: Shortness of Breath Stated Complaint: SHORT OF BREATH Time Seen by Provider: 07/17/19 10:37 - History of Present Illness Initial Comments: 07/17/19 12:50 Pt presents to the ED complaining of persistent cough and shortness of breath. History of COPD, with frequent courses of antibiotics and prednisone. Seen by Dr. Brink 7 days ago, started on third generation cephalosporin and 30 mg prednisone. Presents today because she has had no relief despite the antibiotics. 07/17/19 12:56 Past History - Past Medical History Allergies/Adverse Reactions: Allergies Allergy/AdvReac Type Severity Reaction Status Date / Time iodine Allergy Severe Difficulty Verified 02/17/19 10:44 Breathing shellfish derived Allergy Severe Difficulty Verified 02/17/19 10:44 Breathing lactase [From Dairy Aid] Allergy Intermediate Nausea Verified 02/17/19 10:44 doxycycline AdvReac Intermediate Verified 02/17/19 10:44 Home Medications: Ambulatory Orders Gabapentin 300 mg PO DAILY 03/18/15 Albuterol Sulfate [Proair Respiclick] 90 mcg IH BID 05/19/17 Tramadol HCl [Tramadol HCl ER] 200 mg PO BID 05/19/17 Montelukast Sodium [Singulair] 10 mg PO HS 08/16/18 Oxycodone HCl/Acetaminophen [Oxycodone-Acetaminophen 10-325] 1 each PO QID PRN 08/16/18 Pravastatin Sodium 10 mg PO HS 08/16/18 traZODone HCL [Trazodone HCl] 200 mg PO HS 08/16/18 Cyclobenzaprine HCl [Flexeril 10 mg] 10 mg PO TID PRN #15 tablet 02/17/19 Alprazolam [Xanax] 1 mg PO QID PRN 07/17/19 Cefuroxime Axetil [Ceftin -] 500 mg PO Q12H 07/17/19 Levofloxacin 750 mg PO DAILY #5 tablet 07/17/19 Lisinopril 5 mg PO HS 07/17/19 Prednisone 30 mg PO DAILY 07/17/19 COPD: Yes Disorders: Yes (BLADDER LIFT) HTN: Yes Hypercholesterolemia: Yes Kidney Stones: Yes Psychiatric Problems: Yes (BIPOLAR) Thyroid Disease: Yes - Immunization History Immunization Up to Date: No - Psycho Social/Smoking Cessation Hx Smoking Status: Yes Smoking History: Former smoker Have you smoked in the past 12 months: No Number of Cigarettes Smoked Daily: 0 If you are a former smoker, when did you quit?: 2008 Information on smoking cessation initiated: No Hx Alcohol Use: No Drug/Substance Use Hx: No Substance Use Type: None Hx Substance Use Treatment: No Review of Systems - Review of Systems Able to Perform ROS?: Yes Is the patient limited [place] Islander proficient: No Constitutional: No: Symptoms Reported, See HPI, Chills, Diaphoresis, Fever, Loss of Appetite, Malaise, Night Sweats, Weakness, Weight Stable, Unintentional Wgt. Loss, Unexplained wgt Loss, Other HEENTM: No: Symptoms Reported, See HPI, Eye Pain, Blurred Vision, Tearing, Recent change in vision, Double Vision, Cataracts, Ear Pain, Ocular Prothesis, Ear Discharge, Nose Pain, Nose Congestion, Tinnitus, Nose Bleeding, Hearing Loss , Throat Pain, Throat Swelling, Mouth Pain, Dental Problems, Difficulty Swallowing, Mouth Swelling, Other Respiratory: Yes: Cough, Orthopnea, Shortness of Breath, SOB with Exertion, SOB at Rest Cardiac (ROS): No: Symptoms Reported, See HPI, Chest Pain, Edema, Irregular Heart Rate, Lightheadedness, Palpitations, Syncope, Chest Tightness, Other ABD/GI: No: Symptoms Reported, See HPI, Abdominal Distended, Abd. Pain w/ defecation, Blood Streaked Bowels, Constipated, Diarrhea, Difficulty Swallowing , Nausea, Poor Appetite, Poor Fluid Intake, Rectal Bleeding, Vomiting, Indigestion, Abdominal cramping, Tarry Stools, Other : No: Symptoms Reported, See HPI, Burning, Dysuria, Discharge, Frequency, Flank Pain, Hematuria, Incontinence, Pain, Urgency, Testicular Mass, Testicular Swelling, Lesions, Testicular Pain, Other Musculoskeletal: No: Symptoms Reported, See HPI, Back Pain, Gout, Joint Pain, Joint Swelling, Muscle Pain, Muscle Weakness, Neck Pain, Joint Stiffness, Other Neurological: No: Symptoms reported, See HPI, Headache, Numbness, Paresthesia, Pre-Existing Deficit, Seizure, Tingling, Tremors, Weakness, Unsteady Gait, Ataxia, Dizziness, Other Psychiatric: No: Anxiety, Depression, Frequent Crying, Stressors, Sleep Pattern Change, Emotional Problems, Mood Swings, Change in Appetite, Other Endocrine: No: Symptoms Reported, See HPI, Excessive Sweating, Flushing, Intolerance to Cold, Intolerance to Heat, Increased Hunger, Increased Thirst, Increased Urine, Unexplained Weight Gain, Unexplained Weight Loss, Change in Weight, Other *Physical Exam - Vital Signs Last Vital Signs Temp Pulse Resp BP Pulse Ox 99.3 F 103 H 26 H 143/88 98 07/17/19 10:20 07/17/19 10:20 07/17/19 10:20 07/17/19 10:20 07/17/19 10:20 - Physical Exam 07/17/19 12:57 gen: alert, NAD HEENT: normocephalic, atraumatic CV: rrr no m/r/g Pulm: slightly decreased air entry. Slight wheeze at bases b/l Abdomen: soft, non tender, non distended without guarding rebound. Ext: no edema Neuro: alert and oriented x 3, CN grossly intact, speech fluent and clear. ED Treatment Course - LABORATORY CBC & Chemistry Diagram: 07/17/19 11:10 07/17/19 11:10 Medical Decision Making - Medical Decision Making 07/17/19 12 Pt presents to the ED complaining of wheezing and shortness of breath consistent with prior episodes of bronchitis and COPD exacerbation. CXR and labs checked to evaluate for PNA or cardiac causes. LAbs, CXR and EKG are within normal limits. Patient feels greatly improved after nebs and steroids in the ED. 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 07/17/19 12:58 Discharge - Discharge Information Problems reviewed: Yes Clinical Impression/Diagnosis: COPD exacerbation Condition: Good Disposition: HOME - Admission No - Additional Discharge Information Prescriptions: Levofloxacin 750 mg PO DAILY #5 tablet - Follow up/Referral Referrals: Eboni Alicea MD [Primary Care Provider] - - Patient Discharge Instructions Patient Printed Discharge Instructions: DI for Chronic Obstructive Pulmonary Disease Additional Instructions: you came to the ED for persistent cough after treatment for COPD exacerbation. In the ED, we treated you with nebs and steriods. I have prescribed a different antibiotic for you. you should take 40 mg of prednisone tomorrow and Thursday, and call Dr. Reno and your primary care doctor for follow up tomorrow. Return to the ED for shortness of breath not improved with your inhaler, worsening cough or chest pain, other new or worsening symptoms. - Post Discharge Activity
[2019-07-17] MEDS ORDERED: methylPREDNISolone NA SUCC 125 MG/2 ML VIAL IVPUSH ONE (10:57)
[2019-07-17] MEDS: ALBUTEROL SO4 2.5/IPRATROPIUM 0.5 INH SOL 3 ML VIAL.NEB. NEB SCH ×4 (11:00→11:55)
[2019-07-17] MEDS ORDERED: ALBUTEROL SO4 2.5/IPRATROPIUM 0.5 INH SOL 3 ML VIAL.NEB. NEB ONE (11:01)
[2019-07-17] MEDS ORDERED: methylPREDNISolone NA SUCC 125 MG/2 ML VIAL ONE (11:01)
[2019-07-17 11:35] LABS: BASO % 0.6 % (0-2.0); EOS % 0.5 % (0-4.5); HEMATOCRIT 43.4 % (32.4-45.2); HEMOGLOBIN 14.5 GM/dl (10.7-15.3); LYMPH % 13.6 % (8-40); MCH 30.7 pg (25.7-33.7); MCHC 33.3 g/dl (32.0-36.0); MEAN CELL VOLUME 92.1 fl (80-96); MEAN PLT VOLUME 7.6 fl (7.5-11.1); MONO % 5.9 % (3.8-10.2); NEUT % 79.4 % (42.8-82.8); PLATELET COUNT 491 K/MM3 (134-434); RBC 4.72 M/mm3 (3.60-5.2); RDW 14.2 % (11.6-15.6); WHITE BLOOD COUNT 11.1 K/mm3 (4.0-10.8)
[2019-07-17 11:42] LABS: ALBUMIN 3.7 g/dl (3.4-5.0); BILIRUBIN,TOTAL 0.4 mg/dl (0.2-1); CREATININE 0.9 mg/dl (0.55-1.3); TOT PROT 6.1 g/dl (6.4-8.2)
[2019-07-17 12:13] VITALS: BP 117/85; PULSE 89
--- NOTE | 2019-07-18 09:46 | EKG ---
Test Reason : Blood Pressure : / mmHG Vent. Rate : 087 BPM Atrial Rate : 087 BPM P-R Int : 134 ms QRS Dur : 078 ms QT Int : 362 ms P-R-T Axes : 074 046 063 degrees QTc Int : 435 ms NORMAL SINUS RHYTHM NORMAL ECG WHEN COMPARED WITH ECG OF 17-FEB-2019 11:23, NO SIGNIFICANT CHANGE WAS FOUND Confirmed by PHIL DESAI MD ([id number]) on 07/18/2019 9:45:48 AM Referred By: YARIEL WHATLEY Confirmed By:PHIL DESAI MD
== END 2019-07-17 13:02 | disposition home or self-care (01) ==
LOC: FER 10:19
PROC: 3E0F7GC Introduction of Other Therapeutic Substance into Respiratory Tract, Via Natural or Artificial Opening (ICD-10-PCS; principal; 2019-07-17)
PROC: 3E033GC Introduction of Other Therapeutic Substance into Peripheral Vein, Percutaneous Approach (ICD-10-PCS; 2019-07-17)
DX: J44.9 Chronic obstructive pulmonary disease, unspecified (principal); Z91.013 Allergy to seafood; Z91.09 Other allergy status, other than to drugs and biological substances; Z88.8 Allergy status to other drugs, medicaments and biological substances; Z91.040 Latex allergy status
CPT/HCPCS: 36415; 71045-TC-FY; 80053; 82550; 84484; 85025; 93005; 99283-25

== ENCOUNTER 2021-10-28 10:50 | Emergency (ER) | payer OTHER ==
[2021-10-28 11:04] VITALS: BMI 25.3
[2021-10-28] MEDS ORDERED: methylPREDNISolone NA SUCC 125 MG/2 ML VIAL IVPUSH ONE (11:25)
[2021-10-28] MEDS ORDERED: ASPIRIN 81 MG CHEWABLE TABLETS PO ONE (11:25)
[2021-10-28] MEDS ORDERED: ALBUTEROL SO4 2.5/IPRATROPIUM 0.5 INH SOL 3 ML VIAL.NEB. NEB ONE ×2 (11:25→11:46)
[2021-10-28] MEDS ORDERED: ASPIRIN 81 MG CHEWABLE TABLETS ONE (11:46)
[2021-10-28] MEDS ORDERED: methylPREDNISolone NA SUCC 125 MG/2 ML VIAL ONE (11:46)
[2021-10-28 13:05] LABS: ALBUMIN 4.4 g/dl (3.4-5.0); BILIRUBIN,TOTAL 0.6 mg/dl (0.2-1); CALCIUM 9.4 mg/dl (8.5-10); INR 0.99 (0.83-1.09); PROTHROMBIN TIME (PATIENT) 11.4 SEC (9.7-13.0); TOT PROT 6.8 g/dl (6.4-8.2)
[2021-10-28 13:08] LABS: ACTIVATED PTT 31.4 SECONDS (25.2-36.5)
[2021-10-28 13:15] LABS: HEMATOCRIT 45.9 % (32.4-45.2); HEMOGLOBIN 15.9 G/dL (10.7-15.3); MCH 30.6 pg (25.7-33.7); MCHC 34.6 g/dl (32.0-36.0); MEAN CELL VOLUME 88.3 fl (80-96); MEAN PLT VOLUME 7.8 fl (7.5-11.1); PLATELET COUNT 463.6 10^3/uL (134-434); RDW 15.4 % (11.6-15.6); WHITE BLOOD COUNT 12.2 10^3/uL (4.0-10.8)
[2021-10-28 13:33] LABS: PLATELET ESTIMATE SLT INCREASE
[2021-10-28 16:16] VITALS: BP 140/86; PULSE 96; TEMP 98.8
[2021-10-29 12:11] LABS: SARS-CoV-2 NAA Not Detected (Not Detected)
== END 2021-10-28 16:28 | disposition home or self-care (01) ==
LOC: FER 10:50
PROC: 3E0F7GC Introduction of Other Therapeutic Substance into Respiratory Tract, Via Natural or Artificial Opening (ICD-10-PCS; principal; 2021-10-28)
PROC: 3E033GC Introduction of Other Therapeutic Substance into Peripheral Vein, Percutaneous Approach (ICD-10-PCS; 2021-10-28)
DX: J44.9 Chronic obstructive pulmonary disease, unspecified (principal)
CPT/HCPCS: 36415; 71046-TC-FY; 80053; 83735; 84484; 85025; 85610; 85730; 87040; 87804; 93005; 99285-25; C9803-CS; U0003; U0005

== ENCOUNTER 2022-10-21 11:24 | Emergency (ER) | payer OTHER ==
[2022-10-21 11:37] VITALS: BP 147/80; PULSE 81; RESP 20; TEMP 98.3; BMI 24.9
[2022-10-21] MEDS ORDERED: LIDOCAINE 5% TOPICAL PATCH TP ONE (11:39)
[2022-10-21] MEDS ORDERED: KETOROLAC TROMETHAMINE 30 MG/1 ML VIAL IM ONE (11:39)
[2022-10-21] MEDS ORDERED: KETOROLAC TROMETHAMINE 30 MG/1 ML VIAL ONE (12:19)
[2022-10-21] MEDS ORDERED: LIDOCAINE 5% TOPICAL PATCH ONE (12:19)
[2022-10-21 12:42] LABS: EPITHELIAL CELLS FEW /hpf
[2022-10-21] MEDS ORDERED: LIDOCAINE PATCH REMOVAL MC SCH (22:00)
== END 2022-10-21 13:46 | disposition home or self-care (01) ==
LOC: FER 11:24
PROC: 3E033NZ Introduction of Analgesics, Hypnotics, Sedatives into Peripheral Vein, Percutaneous Approach (ICD-10-PCS; principal; 2022-10-21)
DX: M25.552 Pain in left hip (principal); M54.50 Low back pain, unspecified; G89.29 Other chronic pain; M79.605 Pain in left leg; W22.8XXA Striking against or struck by other objects, initial encounter
CPT/HCPCS: 73502-TC-LT-FY; 81003; 81015; 87086; 99284-25

== ENCOUNTER 2023-03-05 04:26 | Day surgery (SDC) | payer OTHER ==
[2023-03-03 10:45] VITALS: BMI 23.8
[2023-03-05] MEDS ORDERED: ALBUTEROL SO4 HFA INHALER IH ONE (08:22)
[2023-03-05 09:43] VITALS: TEMP 98.9
[2023-03-05 09:45] VITALS: BP 140/97; PULSE 99; RESP 14
== END 2023-03-05 09:45 | disposition home or self-care (01) ==
LOC: JASU-ENDO 04:26
PROVIDERS: ATTEND Internal Medicine Gastroenterology
PROC: 0DJD8ZZ Inspection of Lower Intestinal Tract, Via Natural or Artificial Opening Endoscopic (ICD-10-PCS; principal; 2023-03-05 08:30)
DX: Z12.11 Encounter for screening for malignant neoplasm of colon (principal); Z86.010 Personal history of colon polyps